=== PATIENT | female | born 1985 | race Caucasian/White ===

== ENCOUNTER 2024-12-13 08:41 | Outpatient (CLI) | payer BC ==
[~2024-12-13 08:41] MED LIST: Gadobenate Dimeglumine 2 ML, Sodium Chloride 0.9% 250 ML 10 ML, Iopamidol 8 ML, Lidocai... IV SCH
[2024-12-13] MEDS ORDERED: Sodium Bicarbonate 2.5 MEQ/5 ML SDV ONE (09:03)
== END 2024-12-13 08:42 | disposition home or self-care (01) ==
LOC: RAD 08:41
PROVIDERS: ATTEND Orthopaedic Surgery
DX: M75.111 Incomplete rotator cuff tear or rupture of right shoulder, not specified as traumatic (principal); S46.911A Strain of unspecified muscle, fascia and tendon at shoulder and upper arm level, right arm, initial encounter
CPT/HCPCS: 23350; 77002; A9577; J0166; J7050; Q9967